=== PATIENT | female | born 1935 | race Caucasian/White ===

== ENCOUNTER 2017-01-25 14:09 | Outpatient (CLI) | payer MEDICARE ==
[2017-01-25 14:46] LABS: #Basophils 0.1 thou/uL (0.0-0.2); #Eosinphils 0.4 thou/uL (0.0-0.7); #Lymphocytes 1.3 thou/uL (1.20-3.40); #Monocytes 0.7 thou/uL (0.11-0.59); #Neutrophils 4.8 thou/uL (1.40-6.50); %Basophils 1.7 % (0.0-1.0); %Eosinophils 5.9 % (0.0-10.0); %Lymphocytes 17.6 % (21.0-51.0); %Monocytes 9.5 % (0.0-10.0); %Neutrophils 65.3 % (42.0-75.0); Hemoglobin 12.9 g/dL (12.0-16.0); Mean Corpuscular Hemoglobin 30.8 pg (27.0-31.0); Mean Corpuscular Volume 93.2 fl (81.0-99.0); Platelet Count 194 thou/uL (130-400); RBC Distribution Width 13.2 % (11.5-14.5); White Blood Cell (WBC) Count 7.4 thou/uL (4.8-10.8)
[2017-01-25 14:56] LABS: ALT (SGPT) 13 U/L (8-55); AST (SGOT) 21 U/L (5-34); Albumin 3.9 g/dL (3.4-4.8); Alkaline Phosphatase 47 U/L (40-150); Anion Gap 17 mmol/L (10-20); BUN (Urea Nitrogen) 28 mg/dL (9.8-20.1); Bilirubin, Total 0.5 mg/dL (0.2-1.2); Calc. Creatinine Clearance 0 mL/min (70-130); Calcium 9.5 mg/dL (7.8-10.44); Carbon Dioxide 26 mmol/L (23-31); Chloride 104 mmol/L (98-107); Estimated GFR-MDRD 47; Globulin 3.1 g/dL (2.4-3.5); Glucose 105 mg/dL (83-110); Sodium 143 mmol/L (136-145)
--- NOTE | 2017-01-25 18:38 | CT ---
NONCONTRAST ENHANCED CT IMAGES OF ABDOMEN AND PELVIS: History: Right lower quadrant pain. Oral contrast was given. IV contrast was not given due to the history of contrast allergy. FINDINGS: The lung bases are unremarkable. Intracardiac pacing leads seen. There is an endovascular stent graft in place. The liver and spleen are unremarkable. The gallbladder has been surgically removed. The pancreas is u nremarkable. Adrenal glands and kidneys are unremarkable. The collecting systems bilaterally are unremarkable. Multilevel lumbar disc degenerative changes seen . No evidence of periaortic lymphadenopathy is seen. No evidence of bowel obstruction or ileus seen. Descending and sigmoid colonic diverticulosis is seen. IMPRESSION: 1. Descending and sigmoid colonic diverticulosis. No other significant abnormality seen. POS: [facility]
== END 2017-01-25 14:10 | disposition home or self-care (01) ==
LOC: NAV CT 14:09
PROVIDERS: ATTEND Family Medicine
DX: R10.31 Right lower quadrant pain (principal); K57.30 Diverticulosis of large intestine without perforation or abscess without bleeding
CPT/HCPCS: 36415; 74176; 80053; 85025

== ENCOUNTER 2017-04-21 15:11 | Inpatient (IN) | payer MEDICARE ==
[2017-04-21 15:19] VITALS: BMI 40.4
[2017-04-21] MEDS: fentaNYL 50 mcg/hour Patch TD SCH (18:48)
[2017-04-21] MEDS: Diazepam 5 MG TAB PO SCH (19:47)
[2017-04-21] MEDS: Acyclovir 400 mg Tablet PO SCH (19:47)
[2017-04-21] MEDS: Carvedilol 25 MG TAB PO SCH (19:47)
[2017-04-21 21:55] LABS: Bilirubin Negative (Negative); Blood, Urine Trace (Negative); Glucose, Urine (Dipstick) Negative (Negative); Leukocyte Negative (Negative); Nitrite Negative (Negative); Protein, Urine (Dipstick) Trace mg/dL (Neg-Trace); Specific Gravity, Urine 1.015 (1.005-1.030); pH, Urine 8.5 (5.0-9.0)
[2017-04-21 21:57] LABS: Clarity Hazy (Clear)
[2017-04-21 22:07] LABS: Crystals/HPF 2+ AMORPH URATES HPF (Negative); RBC/HPF 0-3 HPF (0-3); Squamous Epithelial 0-3 HPF (0-3); WBC/HPF 0-3 HPF (0-3)
[2017-04-21] MEDS: Albuterol Sulfate 2.5 mg/3 ml Neb NEB PRN (22:42)
[2017-04-21] MEDS ORDERED: Lorazepam 0.5 MG TAB PO PRN (23:11)
[2017-04-21] MEDS: HYDROcodone/Acetaminophen 5/325 mg Tablet PO PRN (23:17)
[2017-04-22] MEDS: Albuterol Sulfate 2.5 mg/3 ml Neb NEB PRN (03:56)
[2017-04-22] MEDS ORDERED: FLU VACC QS2017-18 36 mo. & older 0.5 ML SYRINGE IM ONE (09:00)
[2017-04-22] MEDS: Polyethylene Glycol 3350 17 GM Packet PO SCH (09:38)
[2017-04-22] MEDS: Ondansetron ODT 4 MG TAB PO PRN (10:24)
[2017-04-22] MEDS: Carvedilol 25 MG TAB PO SCH ×2 (12:17→18:28)
[2017-04-22] MEDS: Amlodipine 5 MG TAB PO SCH (12:17)
[2017-04-22] MEDS: Clopidogrel Bisulfate 75 MG TAB PO SCH (12:22)
[2017-04-22] MEDS: Famotidine 20 MG TAB PO SCH (12:22)
[2017-04-22] MEDS: Donepezil HCl 5 MG TAB PO SCH (12:25)
[2017-04-22] MEDS: Acyclovir 400 mg Tablet PO SCH ×2 (12:25→20:18)
[2017-04-22] MEDS: Fenofibrate Nanocrystallized 145 MG TAB PO SCH (12:27)
[2017-04-22] MEDS: Potassium Chloride 20 MEQ TAB PO SCH (12:28)
[2017-04-22 13:45] LABS: Hemoglobin 11.8 g/dL (12.0-16.0); Mean Corpuscular HGB CONC 32.2 g/dL (32.0-36.0); Mean Corpuscular Hemoglobin 28.4 pg (27.0-31.0); Mean Corpuscular Volume 88.2 fl (81.0-99.0); Platelet Count 195 thou/uL (130-400); RBC Distribution Width 12.6 % (11.5-14.5); Red Blood Cell (RBC) Count 4.16 mill/uL (4.20-5.40); White Blood Cell (WBC) Count 5.5 thou/uL (4.8-10.8)
[2017-04-22 13:47] LABS: Lymphocytes 10 % (21-51); Neutrophil 70 % (42-75)
[2017-04-22 13:48] LABS: Eosinophils 3 % (0-10); Monocytes 17 % (0-10); PLT Morphology Comment Appears Adequate
[2017-04-22 13:53] LABS: ALT (SGPT) 8 U/L (8-55); AST (SGOT) 11 U/L (5-34); Albumin 3.2 g/dL (3.4-4.8); Alkaline Phosphatase 42 U/L (40-150); Anion Gap 13 mmol/L (10-20); BUN (Urea Nitrogen) 23 mg/dL (9.8-20.1); Bilirubin, Total 0.9 mg/dL (0.2-1.2); Calc. Creatinine Clearance 113 mL/min (70-130); Calcium 9.3 mg/dL (7.8-10.44); Carbon Dioxide 29 mmol/L (23-31); Chloride 107 mmol/L (98-107); Estimated GFR-MDRD 72; Globulin 2.8 g/dL (2.4-3.5); Glucose 135 mg/dL (83-110); Potassium 3.2 mmol/L (3.5-5.1); Sodium 146 mmol/L (136-145)
[2017-04-22] MEDS: Diazepam 5 MG TAB PO SCH (20:18)
[2017-04-22] MEDS: HYDROcodone/Acetaminophen 5/325 mg Tablet PO PRN (20:20)
[2017-04-23] MEDS: Fenofibrate Nanocrystallized 145 MG TAB PO SCH (08:33)
[2017-04-23] MEDS: Acyclovir 400 mg Tablet PO SCH ×2 (08:33→20:15)
[2017-04-23] MEDS: Carvedilol 25 MG TAB PO SCH ×2 (08:33→17:24)
[2017-04-23] MEDS: Polyethylene Glycol 3350 17 GM Packet PO SCH (08:33)
[2017-04-23] MEDS: Amlodipine 5 MG TAB PO SCH (08:34)
[2017-04-23] MEDS: Donepezil HCl 5 MG TAB PO SCH (08:34)
[2017-04-23] MEDS: Clopidogrel Bisulfate 75 MG TAB PO SCH (08:35)
[2017-04-23] MEDS: Famotidine 20 MG TAB PO SCH (08:35)
[2017-04-23] MEDS: HYDROcodone/Acetaminophen 5/325 mg Tablet PO PRN ×2 (10:14→20:15)
--- NOTE | 2017-04-23 11:20 | PRG ---
DATE OF SERVICE: 04/22/2017 SUBJECTIVE: The patient feels persistent pain, asking for more pain medication and not working with physical therapy. She is denying any shortness of breath, wheezing, nausea, vomiting or diaphoresis. OBJECTIVE: VITAL SIGNS: Blood pressure is 178/71, temperature is 97, pulse 66, respirations 18, O2 sats 96% on 3 liters. LABORATORY: Laboratory shows white count 5500, hematocrit 36, hemoglobin 11. Sodium is 146, potassi um 3.2, chloride 107, bicarbonate 29, BUN 23, creatinine 0.77, glucose 135, albumin 3.2, globulin 2.8 . LUNGS: Show decreased breath sounds, but no rales, rhonchi, rubs or wheezes. CARDIAC: Regular rhythm. No gallops or murmurs. SKIN AND EXTREMITIE: Skin and extremities show tenderness to feather touch diffusely. No edema, clu bbing, cyanosis. NEUROLOGICAL: Intact. ASSESSMENT: 1. Slowly improving hypoxic respiratory failure with no evidence of metabolic alkalosis, but with pe rsistent hypokalemia and will increase potassium 20 mEq twice daily. 2. Hypertension, elevated today and since admission despite treatment with amlodipine 5 mg daily, ca rvedilol 12.5 twice daily, and Benicar 40 daily and will increase amlodipine to 10 mg daily. 3. History of dementia on memantine and donepezil, but the patient appears to be alert and has revok ed DNR. Will discuss with family. 4. Coronary artery disease, peripheral vascular disease, asymptomatic. 5. Multiple drug allergies with no problems at this time. PLAN: 1. Continue PT, OT. 2. Continue fentanyl 50 mcg q.72h. 3. Continue [place] 5/325 every 4 hours as needed. 4. Continue DVT and stress ulcer prophylaxis.
[2017-04-23] MEDS: Potassium Chloride 20 MEQ TAB PO SCH (11:24)
--- NOTE | 2017-04-23 11:25 | PRG ---
DATE OF SERVICE: 04/23/2017 SUBJECTIVE: The patient is sitting up in bed, attempting to cooperating with therapy, but would not stand, only sat on the side of the bed and would not allow the therapist to help her because of pain from the fibromyalgia with assistance with the belt. Denies any shortness of breath or chest pain. OBJECTIVE: VITAL SIGNS: Blood pressure 178/71, temperature 97, pulse 66, respirations 18, O2 sats 96% on 3 lite rs. LUNGS: Lungs are clear. CARDIAC: Cardiac examination shows regular rhythm. ABDOMEN: Abdomen is soft and nontender. SKIN AND EXTREMITIES: Skin and extremities showed tenderness to feather touch. NEURO: Neurological shows no focal findings. ASSESSMENT: 1. Fibromyalgia, on fentanyl patch and [place]. We will add Salonpas that she has at home to be given own supplies. 2. Hypoxic respiratory failure, appears to be improving with 96% on 3 liters. We will attempt to we an down to 2 liters to maintain a sat greater than 90%. 3. Coronary artery disease, asymptomatic. 4. Chronic obstructive pulmonary disease, appears to be stable with no wheezing. Continue handheld nebulizers, DuoNebs 4 times daily routinely. PLAN: We will continue full code status and discuss with family.
--- NOTE | 2017-04-23 12:51 | HP ---
PRIMARY CARE PHYSICIAN: Dr. Fady Flood HISTORY OF PRESENT ILLNESS: The patient is a 81-year-old morbidly obese white female with a history of coronary artery disease, COPD, peripheral vascular disease with an abdominal aortic aneurysm repai r with stent in 2014 and a longstanding fibromyalgia and chronic pain as well as mild underlying zahra ntia and delirium, possibly due to pain medication, who was admitted to [facility] on 04/16/2017 with hypoxic respiratory failure. Apparently she had had an episode of influenza shaila or to this and discharged home, but then became progressively short of breath and was found to [facility] ED to be in hypoxic respiratory failure with an O2 sat of 60% initially, improv ed on 3 liters to a pO2 of 58, pCO2 of 56 and a pH 7.42. Pulmonary embolus was ruled out with a VQ s can as she was unable to obtain CT angio because of a low GFR of 36. She required BiPAP to control h er hypoxia, was admitted to the Intensive Care Unit, had sepsis ruled out and slowly and surely impro zahira with hand held nebulizers as well as the BiPAP therapy. She subsequently had her oxygen disconti nued was weaned down to 3 liters, was transferred here on 3 liters with O2 saturation of 90% on that. She does not have any underlying chronic hypoxemia. She does have a history apparently of sleep ap amy given to her, but has never had a CPAP or apparently a sleep study. She is morbidly obese and it was felt that this in addition to her previous history of smoking a pack a day for greater than 50 y ears until 7 years ago contributed to her COPD and hypoxia. She also has a history of coronary arter y disease, status post multiple angioplasties and stents, but coronary enzymes were negative. BNP wa s only slightly elevated at 100 and it was felt that this was not ischemic event. She has improved, but is severely deconditioned and weakening secondary to her chronic history of fibromyalgia requirin g treatment with hydrocodone and a fentanyl patch as she is unable to tolerate Lyrica or gabapentin. PAST SURGICAL HISTORY: Positive for cholecystectomy, pacemaker placement, hysterectomy, tonsillectom y. ALLERGIES: Multiple allergies otherwise, including PENICILLIN, PREDNISONE, SULFA, ERYTHROMYCIN, TETR ACYCLINE, KEFLEX, IODINE. CURRENT MEDICATIONS: On admission her medications included fentanyl patch 75 mcg. q.72h., hydrocodon e 10/325 q.4h. She also was on TriCor unknown amount daily, Nexium 20 mg daily, Plavix 75 twice kevyn y, ranitidine 150 mg daily, donepezil 5 mg daily, Benicar 40 daily, memantine 10 mg daily, amlodipine 5 mg daily, carvedilol 12.5 twice daily, Valium as needed. FAMILY MEDICAL HISTORY: Positive for father of CVA. Mother of unknown cancer. Sister with obs tructive sleep apnea and diabetes. SOCIAL HISTORY: She has the above-mentioned smoking history. She is nondrinker. She lives at home alone with assistance and apparently was ambulating with a walker at home prior to this illness. REVIEW OF SYSTEMS: HEENT: She denies any headaches, dizziness, change in vision or hearing, hoarseness or dysphagia. PULMONARY: She denies cough prior to the acute illness, is not having no cough. Has no chest pain a nd no wheezing. CARDIOVASCULAR: She denies palpitations, orthopnea, paroxysmal nocturnal dyspnea. GASTROINTESTINAL: She denies nausea, vomiting, diarrhea, constipation, abdominal pain. GENITOURINARY: Denies dysuria, hematuria, nocturia. MUSCULOSKELETAL: She has chronic diffuse pain of her entire body. NEUROLOGIC: She denies localized numbness, weakness in arms or extremities. PHYSICAL EXAMINATION: GENERAL: The patient is an elderly obese white female sitting up working with physical therapy in [facility], but alert, oriented, and lucid at this time and states that she is a full code despite h aving an out of hospital DNR signed. She is not disoriented or confused at this time. VITAL SIGNS: Blood pressure of 193/84, O2 sats 91% on 3 liters, respirations 18, temperature 97.4, p ulse 69. HEENT: Pupils are equal, round, and react to light and accommodation. Sclerae are anicteric, Conjun ctivae pale. Oral mucous membranes are well hydrated. NECK: Supple, no nodes or masses with it somewhat short and thick. LUNGS: Show decreased breath sounds, but no rales, rhonchi, rubs or wheezes. CARDIAC: Showed regular rhythm. No gallops or murmurs. ABDOMEN: Soft, nontender, no masses or organomegaly. Morbidly obese. SKIN/EXTREMITIES: Displayed no edema, clubbing, cyanosis. NEUROLOGICAL: Shows no focal findings. ASSESSMENT AND PLAN: 1. A 81-year-old white female with a history of hypoxic hypercapnic respiratory failure most likely due to chronic obstructive pulmonary disease with underlying chronic obstructive pulmonary disease wi th exacerbation from recent influenza and significant deconditioning and morbid obesity 2. Fibromyalgia, chronic pain limiting patient's PT and OT with significant deconditioning. 3. Coronary artery disease, asymptomatic at this time on home medications of Plavix, carvedilol, aml odipine and Benicar. 4. Underlying history of dementia on the donepezil and memantine, but appears to be alert and lucid at this time. 5. Gastroesophageal reflux, controlled on Nexium. 6. Hyperlipidemia on fenofibrate, but no statin. PLAN: 1. Continue PT, OT. 2. Continue oxygen at 3 liters and attempt to wean off to maintain a sat of 90% on room air. 3. Severe fibromyalgia on fentanyl patch, Salonpas patches that she has at home and [place]. We will continue on these medications and no more despite continued pain because of respiratory failure assoc iated with hypoxia and hypercapnia. 4. History of underlying dementia appears to be alert and lucid and giving request for a full resusc itation at this time. 5. Hypertension, is stable, slightly elevated today, possibly to discontinuation of medications and will monitor. 6. Coronary artery disease, asymptomatic with no evidence of recent ischemia. 7. Restart home medications. Continue fentanyl at 50 mcg q.72h. as previously with [place] as needed, but no other medication. Continue Salonpas. 8. Continue carvedilol 12.5 twice daily, amlodipine 5 daily, continue Benicar and monitor renal func tion. 9. Continue handheld nebulizers 4 times daily as needed. 10. Continue Valium 10 mg at night. 11. Continue Zovirax 400 twice daily for prophylaxis herpes. We will question family about this. 12. Continue famotidine for stress ulcer prophylaxis. 13. Continue ABBIE hose and start on Lovenox subcu for DVT prophylaxis.
[2017-04-23] MEDS: Diazepam 5 MG TAB PO SCH (20:15)
[2017-04-24 05:44] LABS: Anion Gap 11 mmol/L (10-20); BUN (Urea Nitrogen) 26 mg/dL (9.8-20.1); Calc. Creatinine Clearance 114 mL/min (70-130); Calcium 9.3 mg/dL (7.8-10.44); Carbon Dioxide 30 mmol/L (23-31); Chloride 109 mmol/L (98-107); Estimated GFR-MDRD 73; Glucose 98 mg/dL (83-110); Sodium 146 mmol/L (136-145)
--- NOTE | 2017-04-24 07:37 | PRG ---
DATE OF SERVICE: 04/24/2017 DATE OF ADMISSION: 04/21/2017 HISTORY OF PRESENT ILLNESS: Ms. Stover is a very pleasant 81-year-old morbidly obese white female w ith coronary artery disease, peripheral vascular disease, abdominal aortic aneurysm repair, fibromyal rahat, chronic pain that became ill with upper respiratory infection. She became hypoxic, transferred and admitted to ICU at [facility] where she was on BiPAP. She eventually was wea davey down, stabilized, but was very weak. She was transferred here for physical therapy and occupatio nal therapy to increase her strength and her stamina. SUBJECTIVE: Ms. Stover states she is doing well this morning. She is not having complaints and she is almost ready for breakfast this morning. PHYSICAL EXAMINATION: VITAL SIGNS: This morning reveal blood pressure 138/64, pulse 64, respirations 18, O2 sat 92% on 2 l iters nasal cannula. GENERAL: This is a well-developed, well-nourished, obese white female in no apparent distress at thi s time. HEENT: Reveals normocephalic, nontraumatic cranium. Pupils equally round and reactive. Extraocular movements are intact. Nose and throat are slightly dry. NECK: Supple, without mass, nodes or bruits. CHEST: Clear to auscultation. No rales, no rhonchi, no wheezes and no cough are heard this morning. HEART: Reveals a regular rate and rhythm without murmurs, gallops or rubs. ABDOMEN: Obese, soft, nontender, without organomegaly, normal bowel sounds are noted. No rebound or guarding is noted. : Deferred. EXTREMITIES: Reveal no clubbing, cyanosis or edema this morning. NEUROLOGIC: The patient is oriented to person, place, and time. IMPRESSION: 1. Hypoxic respiratory failure, much improved, presently on 2 liters. 2. Coronary artery disease, stable. 3. Chronic obstructive pulmonary disease. 4. Sleep apnea. 5. Fibromyalgia, on fentanyl patch and [place]. PLAN: 1. Continue present medications. 2. Stress ulcer prophylaxis. 3. Decubitus precautions. 4. Deep venous thrombosis prophylaxis. 5. Continue to wean oxygen as able.
[2017-04-24] MEDS: Carvedilol 25 MG TAB PO SCH ×2 (08:36→16:25)
[2017-04-24] MEDS: Clopidogrel Bisulfate 75 MG TAB PO SCH (08:37)
[2017-04-24] MEDS: Amlodipine 5 MG TAB PO SCH (08:37)
[2017-04-24] MEDS: Acyclovir 400 mg Tablet PO SCH ×2 (08:37→19:46)
[2017-04-24] MEDS: Donepezil HCl 5 MG TAB PO SCH (08:38)
[2017-04-24] MEDS: Enoxaparin Sodium 30 MG/0.3 ML SYRINGE SC SCH (08:38)
[2017-04-24] MEDS: Fenofibrate Nanocrystallized 145 MG TAB PO SCH (08:38)
[2017-04-24] MEDS: Famotidine 20 MG TAB PO SCH (08:38)
[2017-04-24] MEDS: SALON PAS TOP SCH (08:39)
[2017-04-24] MEDS: Polyethylene Glycol 3350 17 GM Packet PO SCH (08:39)
[2017-04-24] MEDS: Potassium Chloride 20 MEQ TAB PO SCH (11:47)
[2017-04-24] MEDS ORDERED: Artificial Tear Sol 15 ML BOT EA EYE PRN (18:20)
[2017-04-24] MEDS: fentaNYL 50 mcg/hour Patch TD SCH (19:44)
[2017-04-24] MEDS: Diazepam 5 MG TAB PO SCH (19:46)
[2017-04-24] MEDS: Ondansetron ODT 4 MG TAB PO PRN (19:46)
[2017-04-24] MEDS: HYDROcodone/Acetaminophen 5/325 mg Tablet PO PRN (19:46)
[2017-04-24] MEDS: Nystatin Powder 15 GM BOT TOP SCH (19:58)
--- NOTE | 2017-04-25 07:48 | PRG ---
DATE OF SERVICE: 04/25/2017 DATE OF ADMISSION: 04/21/2017 HISTORY OF PRESENT ILLNESS: Ms. Stover is a very pleasant 81-year-old morbidly obese white female w ith coronary artery disease, peripheral vascular disease, abdominal aortic aneurysm repair, fibromyal rahat, chronic pain that became ill with upper respiratory infection. She was hypoxic and transferred and admitted to ICU at [facility] where she was initiated on BiPAP. She survived that and seemed to get somewhat better and eventually was stabilized and transferred to [facility] for physical therapy and occupational therapy to increase her strength and stamina. Ms. Stover states she is tired, but she feels good this morning. She states she had a good rest and she has no complaints today. PHYSICAL EXAMINATION: GENERAL: Reveals a well-developed, well-nourished, very pleasant, obese white female in no apparent distress at this time. VITAL SIGNS: Today reveal blood pressure 168/71, pulse 65-67, respirations 18, O2 sat 92%-93% on 2 l iters nasal cannula, T-max 98.4. GENERAL: This is a well-developed, well-nourished, very pleasant, obese white female in no apparent distress at this time. HEENT: Reveals normocephalic, nontraumatic cranium. Pupils are equal, round, and reactive. Extraoc ular movements are intact. Nose and throat are slightly dry, but clear. NECK: Supple, without mass, nodes or bruits. CHEST: Clear to auscultation. No rales, rhonchi, wheezes or cough is heard. HEART: Reveals a regular rate and rhythm without murmurs, gallops or rubs. ABDOMEN: Obese, soft, nontender, without organomegaly, normal bowel sounds are noted. No rebound or guarding is noted. GENITOURINARY: Deferred. EXTREMITIES: Reveal no clubbing, cyanosis or edema. NEUROLOGIC: Patient is oriented to person, place, and time. LABORATORY DATA: Laboratory data from yesterday reveals sodium 146, potassium 4.0, chloride 109, car bon dioxide 30 with BUN of 26 and creatinine down to 0.76. Her sugar was 98 this morning. IMPRESSION: 1. Hypoxic respiratory failure, much improved presently on 2 liters. 2. Coronary artery disease, stable. 3. Chronic obstructive pulmonary disease. 4. Sleep apnea. 5. Fibromyalgia, on fentanyl patch and [place]. PLAN: 1. Continue present medications. 2. Continue stress ulcer prophylaxis. 3. Continue decubitus precautions. 4. Deep venous thrombosis prophylaxis. 5. Continue to wean oxygen as able. 6. Continue physical therapy. 7. Continue occupational therapy. 8. Dr. Arias will be back to follow this patient tomorrow.
[2017-04-25] MEDS: Carvedilol 25 MG TAB PO SCH ×2 (08:46→16:51)
[2017-04-25] MEDS: Famotidine 20 MG TAB PO SCH (08:47)
[2017-04-25] MEDS: Fenofibrate Nanocrystallized 145 MG TAB PO SCH (08:47)
[2017-04-25] MEDS: Clopidogrel Bisulfate 75 MG TAB PO SCH (08:47)
[2017-04-25] MEDS: Enoxaparin Sodium 30 MG/0.3 ML SYRINGE SC SCH (08:47)
[2017-04-25] MEDS: Donepezil HCl 5 MG TAB PO SCH (08:47)
[2017-04-25] MEDS: Amlodipine 5 MG TAB PO SCH (08:47)
[2017-04-25] MEDS: Acyclovir 400 mg Tablet PO SCH ×2 (08:47→20:38)
[2017-04-25] MEDS: Nystatin Powder 15 GM BOT TOP SCH ×2 (08:48→20:38)
[2017-04-25] MEDS: Polyethylene Glycol 3350 17 GM Packet PO SCH (08:49)
[2017-04-25] MEDS: SALON PAS TOP SCH (08:53)
[2017-04-25] MEDS: Potassium Chloride 20 MEQ TAB PO SCH (11:40)
[2017-04-25] MEDS: HYDROcodone/Acetaminophen 5/325 mg Tablet PO PRN ×2 (13:46→20:38)
[2017-04-25] MEDS: Ondansetron ODT 4 MG TAB PO PRN (16:54)
[2017-04-25] MEDS: Diazepam 5 MG TAB PO SCH (20:38)
[2017-04-26] MEDS: Polyethylene Glycol 3350 17 GM Packet PO SCH (09:35)
[2017-04-26] MEDS: Nystatin Powder 15 GM BOT TOP SCH ×2 (09:35→19:46)
[2017-04-26] MEDS: Clopidogrel Bisulfate 75 MG TAB PO SCH (09:36)
[2017-04-26] MEDS: Enoxaparin Sodium 30 MG/0.3 ML SYRINGE SC SCH (09:36)
[2017-04-26] MEDS: Fenofibrate Nanocrystallized 145 MG TAB PO SCH (09:36)
[2017-04-26] MEDS: Acyclovir 400 mg Tablet PO SCH ×2 (09:36→19:45)
[2017-04-26] MEDS: Amlodipine 5 MG TAB PO SCH (09:36)
[2017-04-26] MEDS: Donepezil HCl 5 MG TAB PO SCH (09:36)
[2017-04-26] MEDS: Carvedilol 25 MG TAB PO SCH ×2 (09:37→18:27)
[2017-04-26] MEDS: Famotidine 20 MG TAB PO SCH (09:38)
[2017-04-26] MEDS: SALON PAS TOP SCH (09:40)
[2017-04-26] MEDS: Potassium Chloride 20 MEQ TAB PO SCH (13:08)
--- NOTE | 2017-04-26 16:00 | PRG ---
DATE OF SERVICE: 04/26/2017 SUBJECTIVE: The patient feels much better today, cheerful, realizing, she needs to do therapy and ge t out of bed and is ready to do therapy today, rested well through the night. OBJECTIVE: VITAL SIGNS: Temperature is 98, pulse 74, respirations 18, O2 sats 93% on 2 liters, and blood pressu re 142/80. LUNGS: Clear. CARDIAC: Regular rhythm. No gallops or murmurs. LABORATORY DATA: Laboratory showed a sodium 146, potassium 4.0, chloride 109, bicarbonate 30, BUN 26 , and creatinine 0.76. ASSESSMENT: 1. Resolving influenza, exacerbation of chronic obstructive pulmonary disease. 2. Stable fibromyalgia with stable pain. 3. Stable peripheral vascular disease, asymptomatic. 4. Probable sleep apnea. 5. Coronary artery disease, asymptomatic. PLAN: Continue PT, OT. Continue same pain medications and antianxiety medications from home. Discuss with PCP and family.
[2017-04-26] MEDS: Diazepam 5 MG TAB PO SCH (19:45)
[2017-04-26] MEDS: HYDROcodone/Acetaminophen 5/325 mg Tablet PO PRN (19:46)
--- NOTE | 2017-04-27 07:04 | PRG ---
DATE OF SERVICE: 04/27/2017 SUBJECTIVE: The patient lying in the bed, taking her breathing treatments. States that she feels be tter and did cooperate with therapy yesterday and slept well through the night. OBJECTIVE: VITAL SIGNS: O2 sats 90% on 2 liters, respirations 18, pulse 66, temperature 97.6, blood pressure 17 1/72. LUNGS: Lungs show only a few diffuse wheezes and rhonchi. CARDIAC: Cardiac examination shows regular rhythm. No gallops or murmurs. ABDOMEN: Soft and nontender. SKIN AND EXTREMITIES: Show diffuse tenderness, chronic pain from fibromyalgia. ASSESSMENT: 1. Resolving influenza exacerbation, chronic obstructive pulmonary disease with persistent bronchosp asm requiring nebulizer treatment. 2. Stable fibromyalgia. 3. Significant deconditioning, now cooperating with therapy. 4. Asymptomatic coronary disease. 5. Probable sleep apnea, undiagnosed. PLAN: 1. Discussed discharge planning with family who agree that she needs to be able to maintain the ADLs alone as she will be alone at times when discharged home. 2. Continue handheld nebulizer 4 times a day and treatment of chronic obstructive pulmonary disease. 3. Continue PT and OT with goal of maintaining ADLs without assistance, except for a walker. 4. Continue chronic pain medications of fentanyl and [place] for fibromyalgia and do not give other me dications as she has hallucinations with other pain medications according to the family.
[2017-04-27] MEDS: Polyethylene Glycol 3350 17 GM Packet PO SCH (09:45)
[2017-04-27] MEDS: Enoxaparin Sodium 30 MG/0.3 ML SYRINGE SC SCH (09:46)
[2017-04-27] MEDS: SALON PAS TOP SCH (09:47)
[2017-04-27] MEDS: Famotidine 20 MG TAB PO SCH (09:48)
[2017-04-27] MEDS: Acyclovir 400 mg Tablet PO SCH ×2 (09:48→19:44)
[2017-04-27] MEDS: Fenofibrate Nanocrystallized 145 MG TAB PO SCH (09:48)
[2017-04-27] MEDS: Amlodipine 5 MG TAB PO SCH (09:49)
[2017-04-27] MEDS: Clopidogrel Bisulfate 75 MG TAB PO SCH (09:49)
[2017-04-27] MEDS: Carvedilol 25 MG TAB PO SCH ×2 (09:49→18:10)
[2017-04-27] MEDS: Donepezil HCl 5 MG TAB PO SCH (09:49)
[2017-04-27] MEDS: Nystatin Powder 15 GM BOT TOP SCH ×2 (09:50→19:45)
[2017-04-27] MEDS: Potassium Chloride 20 MEQ TAB PO SCH (12:28)
[2017-04-27] MEDS: fentaNYL 50 mcg/hour Patch TD SCH (19:43)
[2017-04-27] MEDS: Diazepam 5 MG TAB PO SCH (19:44)
[2017-04-27] MEDS: HYDROcodone/Acetaminophen 5/325 mg Tablet PO PRN (19:45)
[2017-04-28] MEDS ORDERED: Diazepam 5 MG TAB PO SCH (07:01)
[2017-04-28] MEDS: Carvedilol 25 MG TAB PO SCH ×2 (08:50→17:45)
[2017-04-28] MEDS: Amlodipine 5 MG TAB PO SCH (08:51)
[2017-04-28] MEDS: Clopidogrel Bisulfate 75 MG TAB PO SCH (08:51)
[2017-04-28] MEDS: Acyclovir 400 mg Tablet PO SCH ×2 (08:51→19:21)
[2017-04-28] MEDS: Enoxaparin Sodium 30 MG/0.3 ML SYRINGE SC SCH (08:51)
[2017-04-28] MEDS: Fenofibrate Nanocrystallized 145 MG TAB PO SCH (08:52)
[2017-04-28] MEDS: Nystatin Powder 15 GM BOT TOP SCH ×2 (08:52→19:21)
[2017-04-28] MEDS: Famotidine 20 MG TAB PO SCH (08:52)
[2017-04-28] MEDS: SALON PAS TOP SCH (08:53)
[2017-04-28] MEDS: Polyethylene Glycol 3350 17 GM Packet PO SCH (08:53)
[2017-04-28] MEDS: HYDROcodone/Acetaminophen 5/325 mg Tablet PO PRN ×2 (08:54→19:21)
[2017-04-28] MEDS: Potassium Chloride 20 MEQ TAB PO SCH (11:09)
[2017-04-28] MEDS: Arformoterol 15 MCG/2 ML NEB NEB SCH (18:31)
[2017-04-28] MEDS: Budesonide 0.5 MG/2 ML NEB INH SCH (18:35)
[2017-04-28] MEDS: Donepezil HCl 5 MG TAB PO SCH (19:21)
--- NOTE | 2017-04-28 20:17 | PRG ---
DATE OF SERVICE: 04/28/2017 SUBJECTIVE: The patient feels fatigued and does not want to do any therapy, is only standing and tra nsferring and therapy states that she is not cooperating. She is denying any shortness of breath, ch est pain, only that she is tired and does not want to do therapy. OBJECTIVE: VITAL SIGNS: Shows her blood pressure 147/69, pulse 67, temperature is 96, O2 sats 94% on 2 liters. LUNGS: Clear. CARDIAC: Examination shows regular rhythm. SKIN AND EXTREMITIES: Show no edema. ASSESSMENT: Resolving chronic obstructive pulmonary disease exacerbation secondary to influenza, sev ere deconditioning and her inability to maintain ADLs. PLAN: Discuss with family about the patient's failure to cooperate, and may need to transfer to a [facility] home.
[2017-04-29] MEDS: Arformoterol 15 MCG/2 ML NEB NEB SCH ×2 (05:36→18:46)
[2017-04-29] MEDS: Budesonide 0.5 MG/2 ML NEB INH SCH ×2 (05:36→18:46)
[2017-04-29] MEDS: Carvedilol 25 MG TAB PO SCH ×2 (08:28→18:45)
[2017-04-29] MEDS: Amlodipine 5 MG TAB PO SCH (08:29)
[2017-04-29] MEDS: Clopidogrel Bisulfate 75 MG TAB PO SCH (08:29)
[2017-04-29] MEDS: Acyclovir 400 mg Tablet PO SCH ×2 (08:29→20:10)
[2017-04-29] MEDS: Famotidine 20 MG TAB PO SCH (08:30)
[2017-04-29] MEDS: Enoxaparin Sodium 30 MG/0.3 ML SYRINGE SC SCH (08:30)
[2017-04-29] MEDS: Nystatin Powder 15 GM BOT TOP SCH ×2 (08:30→20:13)
[2017-04-29] MEDS: Fenofibrate Nanocrystallized 145 MG TAB PO SCH (08:30)
[2017-04-29] MEDS: HYDROcodone/Acetaminophen 5/325 mg Tablet PO PRN (08:31)
[2017-04-29] MEDS: Polyethylene Glycol 3350 17 GM Packet PO SCH (08:31)
[2017-04-29] MEDS: SALON PAS TOP SCH (08:31)
[2017-04-29] MEDS: Potassium Chloride 20 MEQ TAB PO SCH (11:54)
[2017-04-29] MEDS: Donepezil HCl 5 MG TAB PO SCH (20:10)
[2017-04-30] MEDS: Budesonide 0.5 MG/2 ML NEB INH SCH (05:37)
[2017-04-30] MEDS: Arformoterol 15 MCG/2 ML NEB NEB SCH (05:38)
--- NOTE | 2017-04-30 08:23 | PRG ---
DATE OF SERVICE: 04/29/2017 SUBJECTIVE: The patient feels the same. No pain, shortness of breath at rest, but is refusing to do therapy. She states she cannot get up and walk or stand. After explanation that she would not be a ble to continue in PT if she did not cooperate and she would not be able to go home if she could not maintain activities of daily living, she stated that she understood. Discussed with the daughter who stated that family understood and that if she did not improve, we will start making arrangement to [facility]. OBJECTIVE: VITAL SIGNS: Vital signs showed temperature 97.5, pulse 68, respirations 18, O2 sats 94% on 2 liters . LUNGS: Lungs are clear. CARDIAC: Cardiac examination shows regular rhythm. ABDOMEN: Abdomen is soft and nontender. SKIN AND EXTREMITIES: Skin and extremities showed no edema. ASSESSMENT: 1. Chronic obstructive pulmonary disease, stable. 2. Fibromyalgia with persistent pain by pain treatment. 3. Severe deconditioning with refusal to work with physical therapy. PLAN: Monitor for 1 more day and attempt physical therapy and if no improvement, we will transfer to [facility].
[2017-04-30] MEDS: Enoxaparin Sodium 30 MG/0.3 ML SYRINGE SC SCH (09:34)
[2017-04-30] MEDS: Polyethylene Glycol 3350 17 GM Packet PO SCH (09:35)
[2017-04-30] MEDS: Clopidogrel Bisulfate 75 MG TAB PO SCH (09:36)
[2017-04-30] MEDS: Carvedilol 25 MG TAB PO SCH (09:36)
[2017-04-30] MEDS: Amlodipine 5 MG TAB PO SCH (09:37)
[2017-04-30] MEDS: Famotidine 20 MG TAB PO SCH (09:37)
[2017-04-30] MEDS: Fenofibrate Nanocrystallized 145 MG TAB PO SCH (09:38)
[2017-04-30] MEDS: Nystatin Powder 15 GM BOT TOP SCH (09:38)
[2017-04-30] MEDS: Acyclovir 400 mg Tablet PO SCH (09:38)
[2017-04-30] MEDS: SALON PAS TOP SCH (10:12)
[2017-04-30 12:50] VITALS: BP 120/59; TEMP 98.1
[2017-04-30] MEDS: HYDROcodone/Acetaminophen 5/325 mg Tablet PO PRN (12:52)
[2017-04-30] MEDS: Potassium Chloride 20 MEQ TAB PO SCH (12:53)
--- NOTE | 2017-04-30 16:42 | DIS ---
DATE OF ADMISSION: To the skilled unit on 04/23/2017. DATE OF TRANSFER: To [facility] on 04/30/2017. FINAL DIAGNOSES: 1. Severe deconditioning with inability to maintain ADLs. 2. Chronic obstructive pulmonary disease stable with recent hypoxic respiratory failure after influe nza, now baseline with only minimal oxygen requirements and no dyspnea at rest. 3. Probable obstructive sleep apnea with refusal of sleep study or CPAP. 4. Chronic pain secondary to fibromyalgia with refusal to cooperate with therapy despite long-term t reatment. 5. Mild underlying dementia, possibly exacerbated by recent illness and chronic pain medicine. 6. Coronary artery disease, asymptomatic at this time. 7. Peripheral vascular disease, status post abdominal aortic aneurysm repair with stent in 2014, asy mptomatic. HOSPITAL COURSE: The patient is a 81-year-old white female with multiple medical problems including CAD, COPD, fibromyalgia and recent influenza with respiratory failure, who has recovered from her res piratory failure and only requiring 2 liters of O2 and her hand held nebulizers with no dyspnea at re st or on exertion, but requiring 2 liters of O2 at night. She also has possible obstructive sleep ap amy, but has refused evaluation. She has a chronic history of fibromyalgia and probably progressive mild dementia limiting her therapy and ability to do ADLs and she has failed therapy at [facility] with inability to cooperate, and therefore, is being transferred to [facility] to hopefully continue to attempt her physical therapy. At this time, she is only able to stand for a short period and requires assistance to transfer and roll over in the bed. She does not have any problems eating. No shortness of breath as mentioned above or chest pain at rest. She does have chronic pain, but has been on her stable medications of fentanyl patch 75 mcg every 72 hour s and hydrocodone 10/325 every 4 hours with stable control. She also has been continued on Nexium 20 daily, fenofibrate 137 daily, Plavix 75 twice daily, ranitidine 150 daily, donepezil 5 daily, Benica r 40 daily, memantine 10 daily, amlodipine 5 daily, carvedilol 12.5 twice daily. She had been on [place] ium previously, but this was discontinued at family's request. Her vital signs remained stable with a blood pressure of 120/60, temperature 98, pulse 67, respirations 20 and O2 sats 96% on room air whi le awake, but possibly requiring 2 liters of O2 at sleep. Her white count is 5500, hematocrit 36 and hemoglobin 11. Sodium is 146, potassium 4.0, chloride 109, bicarb 30, BUN 26 and creatinine 0.76. She will be continued on attempted physical therapy and on her home medications including the hand he ld nebulizer with DuoNeb added to the previous medications and will hopefully improve her strength. The family understands this and agrees with the transfer.
== END 2017-04-30 13:49 | DRG 189 ==
LOC: NAV ACUTE 15:11
PROVIDERS: ADMIT Internal Medicine; ATTEND Internal Medicine
DX: J96.01 Acute respiratory failure with hypoxia (principal); F05 Delirium due to known physiological condition; E66.01 Morbid (severe) obesity due to excess calories; Z68.41 Body mass index [BMI] 40.0-44.9, adult; J44.1 Chronic obstructive pulmonary disease with (acute) exacerbation; I25.10 Atherosclerotic heart disease of native coronary artery without angina pectoris; I73.9 Peripheral vascular disease, unspecified; M79.7 Fibromyalgia; G89.29 Other chronic pain; F03.90 Unspecified dementia, unspecified severity, without behavioral disturbance, psychotic disturbance, mood disturbance, and anxiety; Z87.891 Personal history of nicotine dependence; Z95.5 Presence of coronary angioplasty implant and graft; Z95.0 Presence of cardiac pacemaker; K21.9 Gastro-esophageal reflux disease without esophagitis; E78.5 Hyperlipidemia, unspecified; Z53.29 Procedure and treatment not carried out because of patient's decision for other reasons; E87.6 Hypokalemia; G47.33 Obstructive sleep apnea (adult) (pediatric); I10 Essential (primary) hypertension; J98.01 Acute bronchospasm
CPT/HCPCS: 36415; 80048; 80053; 81001; 85007; 85027; 87077; 87086; 87186; 94640; J1650; J7611; J7620; J7626; Q0162

== ENCOUNTER 2018-11-30 17:33 | Emergency (ER) | payer MEDICARE, OTHER | END 2018-11-30 19:57 | disposition home or self-care (01) | LOC: NAV ERS 17:33 | DX: M25.561 Pain in right knee (principal); M25.562 Pain in left knee; R06.02 Shortness of breath; T48.6X5A Adverse effect of antiasthmatics, initial encounter; M79.7 Fibromyalgia; M10.9 Gout, unspecified; I10 Essential (primary) hypertension; F03.90 Unspecified dementia, unspecified severity, without behavioral disturbance, psychotic disturbance, mood disturbance, and anxiety; M19.90 Unspecified osteoarthritis, unspecified site ==

== ENCOUNTER 2020-11-17 08:35 | Emergency (ER) | payer MEDICARE, MEDICAID ==
[2020-11-17 09:12] LABS: Bilirubin Small (Negative); Blood, Urine Moderate (Negative); Glucose, Urine (Dipstick) Negative (Negative); Ketone, Urine Negative (Negative); Leukocyte Small (Negative); Nitrite Negative (Negative); Protein, Urine (Dipstick) 30 mg/dL (Neg-Trace); pH, Urine 5.5 (5.0-9.0)
[2020-11-17 09:12] LABS: ALT (SGPT) 11 U/L (8-55); AST (SGOT) 11 U/L (5-34); Albumin 3.4 g/dL (3.4-4.8); Alkaline Phosphatase 38 U/L (40-110); Anion Gap 13 mmol/L (10-20); BUN (Urea Nitrogen) 32 mg/dL (9.8-20.1); Bilirubin, Total 0.8 mg/dL (0.2-1.2); Calc. Creatinine Clearance 0 mL/min (70-130); Calcium 10.1 mg/dL (7.8-10.44); Carbon Dioxide 30 mmol/L (23-31); Chloride 105 mmol/L (98-107); Glucose 152 mg/dL (83-110); Potassium 4.5 mmol/L (3.5-5.1); Protein, Total 6.4 g/dL (5.8-8.1); Sodium 143 mmol/L (136-145)
[2020-11-17 09:17] LABS: Hemoglobin 10.6 g/dL (12.0-16.0); MDiff Complete? YES; Mean Corpuscular HGB CONC 31.1 g/dL (32.0-36.0); Mean Corpuscular Hemoglobin 35.6 pg (27.0-31.0); Mean Platelet Volume 7.4 fL (7.4-10.4); Platelet Count 149 thou/uL (130-400); RBC Distribution Width 11.8 % (11.5-14.5); Red Blood Cell (RBC) Count 2.98 mill/uL (4.20-5.40); White Blood Cell (WBC) Count 15.7 thou/uL (4.8-10.8)
[2020-11-17] MEDS ORDERED: Fentanyl 100 MCG/2 ML VIAL ONE ×2 (09:17→11:06)
[2020-11-17] MEDS ORDERED: Acetaminophen 325 MG TAB ONE (09:17)
[2020-11-17] MEDS ORDERED: Ondansetron PF 4 MG/2 ML Vial ONE (09:17)
[2020-11-17 09:18] LABS: Band 5 % (5-11); Eosinophils 1 % (0-10); Lymphocytes 11 % (21-51); Metamyelocyte 2 % (0-0); Monocytes 17 % (0-10); Myelocyte 1 % (0-0); Neutrophil 62 % (42-75); Platelet Morphology Comment Appears Adequate; Polychromasia SLIGHT = 2-3 cells (100X) (0-2/hpf); Reactive Lymphocytes 1 % (0-10); Stomatocytes SLIGHT = 2-5 cells (100X) (0-1/hpf)
[2020-11-17 09:21] LABS: Clarity Cloudy (Clear)
[2020-11-17 09:22] LABS: Specific Gravity, Urine 1.021 (1.002-1.036)
[2020-11-17 09:25] LABS: Bacteria/HPF 2+ HPF (None Seen); WBC/HPF Greater Than 50 HPF (0-3)
[2020-11-17 09:27] LABS: Lipase 2 U/L (8-78)
[2020-11-17 09:35] LABS: CKMB 0.4 ng/mL (0-6.6)
[2020-11-17] MEDS ORDERED: Sodium Chloride 0.9% 1,000 ML ONE (09:56)
[2020-11-17] MEDS ORDERED: Gentamicin 80 MG/2 ML VIAL ONE (10:57)
[2020-11-17] MEDS ORDERED: Sodium Chloride 0.9% 250 ML 250 ML ONE (11:00)
[2020-11-17] MEDS ORDERED: HYDROcodone/Acetaminophen 5/325 mg Tablet ONE (11:06)
== END 2020-11-17 13:02 ==
LOC: NAV ERS 08:35
DX: I11.0 Hypertensive heart disease with heart failure (principal); I50.9 Heart failure, unspecified; N39.0 Urinary tract infection, site not specified; D72.829 Elevated white blood cell count, unspecified; G89.29 Other chronic pain; J44.9 Chronic obstructive pulmonary disease, unspecified; E78.5 Hyperlipidemia, unspecified; Z79.899 Other long term (current) drug therapy
CPT/HCPCS: 51701; 71045; 80053; 81003; 81015; 82553; 83605; 83690; 83735; 83880; 84484; 85025; 87077; 87086; 87186; 93005; 94760; 96365; 96375; 96376; J1580; J2405; J3010; J7050